=== PATIENT | male | born 1955 | race Caucasian/White ===

== ENCOUNTER 2019-08-07 18:28 | Inpatient (IN) ==
[2019-08-07] MEDS ORDERED: Ipratropium/Albuterol Neb 3 ML IH ONE (18:45)
[2019-08-07] MEDS ORDERED: Furosemide 40 MG/4 ML VIAL IVP STA (18:47)
[2019-08-07 19:36] LABS: Basophils % 0.4 %; Eosinophils # 0.1 K/mcL (0.0-0.6); Eosinophils % 0.9 %; Hematocrit 25.3 % (37.5-50.1); Hemoglobin 7.8 g/dL (12.9-16.9); Immature Granulocytes % 0.4 % (0-4); Lymphocytes # 0.5 K/mcL (0.6-4.6); Lymphocytes % 9.4 %; Mean Corpuscular HGB Conc 30.8 g/dL (31.6-35.5); Mean Corpuscular Hemoglobin 28.9 pg (28.0-33.3); Mean Corpuscular Volume 93.7 fL (83.0-100.0); Mean Platelet Volume 11.1 fL (9.4-12.4); Monocytes # 0.6 K/mcL (0.0-1.3); Monocytes % 10.6 %; Neutrophils # 4.4 K/mcL (1.6-8.9); Platelet Count 112 K/mcL (140-400); Red Cell Distribution Width 17.1 % (11.5-14.5); Segmented Neutrophils % 78.3 %; White Blood Count 5.6 K/mcL (4.3-11.1)
[2019-08-07 19:41] LABS: INR 4.1
[2019-08-07 19:44] LABS: Prothrombin Time 46.6 Seconds (9.4-12.1)
[2019-08-07 19:58] LABS: Calcium 8.6 mg/dL (8.6-10.3); Potassium 5.4 mEq/L (3.5-5.1)
[2019-08-07] MEDS ORDERED: Acetaminophen 325 MG TABLET PO PRN (21:36)
[2019-08-07] MEDS ORDERED: Naloxone 0.4 MG/ML INJ IVP PRN (21:36)
[2019-08-07] MEDS ORDERED: methylPREDNISolone 125 MG/2 ML VIAL IVP ONE (21:43)
[2019-08-07] MEDS ORDERED: Furosemide 20 MG/2 ML VIAL IVP ONE (21:44)
[2019-08-07 22:45] LABS: Bilirubin,Urine Negative (Negative); Blood,Urine Negative (Negative); Clarity,Urine Clear (Clear); Color,Urine Yellow (Yellow); Glucose,Urine (UA) Normal (Normal); Ketones,Urine Negative (Negative); Leukocyte Esterase,Urine Negative (Negative); Nitrite,Urine Negative (Negative); Protein,Urine Negative (Neg-Trace); Specific Gravity,Urine 1.011 (1.010-1.025); Urobilinogen,Urine Normal (Normal)
[2019-08-07] MEDS ORDERED: Pantoprazole 40 MG VIAL IVP ONE (22:46)
[2019-08-07 22:55] LABS: Sodium, Urine 102.1 mEq/L
[2019-08-07] MEDS ORDERED: 0.9 % Sodium Chloride 250 ML ONE (23:38)
[2019-08-08] MEDS: Ipratropium/Albuterol Neb 3 ML IH SCH ×4 (03:57→22:15)
[2019-08-08 05:15] LABS: Hematocrit 26.9 % (37.5-50.1); Hemoglobin 8.4 g/dL (12.9-16.9); Mean Corpuscular HGB Conc 31.2 g/dL (31.6-35.5); Mean Corpuscular Hemoglobin 29.1 pg (28.0-33.3); Mean Corpuscular Volume 93.1 fL (83.0-100.0); Mean Platelet Volume 11.8 fL (9.4-12.4); Platelet Count 118 K/mcL (140-400); Red Blood Count 2.89 M/mcL (4.19-5.50); White Blood Count 4.9 K/mcL (4.3-11.1)
[2019-08-08 05:25] LABS: INR 2.1; Prothrombin Time 23.4 Seconds (9.4-12.1)
[2019-08-08 05:33] LABS: % Iron Saturation 8 % (20-55); Iron 32 mcg/dL (65-175); Transferrin 300 mg/dL (203-362)
[2019-08-08 05:34] LABS: Calcium 8.6 mg/dL (8.6-10.3); Potassium 5.4 mEq/L (3.5-5.1)
[2019-08-08 06:00] LABS: Folate 22.1 ng/mL (3.0-16.0)
[2019-08-08] MEDS ORDERED: Pantoprazole 40 MG VIAL IVP SCH (06:30)
[2019-08-08] MEDS ORDERED: Furosemide 20 MG/2 ML VIAL IVP SCH (08:00)
[2019-08-08] MEDS: levETIRAcetam 250 MG TABLET PO SCH ×2 (09:05→22:55)
[2019-08-08 10:20] LABS: Adenovirus Not Detected (Not Detect); Bordetella Pertussis Not Detected (Not Detect); Chlamydophila pneumoniae Not Detected (Not Detect); Coronavirus 229E Not Detected (Not Detect); Coronavirus HKU1 Not Detected (Not Detect); Coronavirus NL63 Not Detected (Not Detect); Coronavirus OC43 Not Detected (Not Detect); Human Metapneumovirus Not Detected (Not Detect); Human Rhinovirus/Enterovirus DETECTED (Not Detect); Influenza A Subtype 2009 H1 Not Detected (Not Detect); Influenza B Not Detected (Not Detect); Mycoplasma pneumoniae Not Detected (Not Detect); Parainfluenza Virus 1 Not Detected (Not Detect); Parainfluenza Virus 2 Not Detected (Not Detect); Parainfluenza Virus 3 Not Detected (Not Detect); Parainfluenza Virus 4 Not Detected (Not Detect); Respiratory Syncytial Virus Not Detected (Not Detect)
[2019-08-08 10:22] LABS: Hematocrit 27.7 % (37.5-50.1); Hemoglobin 8.7 g/dL (12.9-16.9)
[2019-08-08] MEDS ORDERED: SODIUM CHLORIDE/NAHCO3/KCL/PEG 4,000 ML SOLN.RECON PO ONE (12:00)
[2019-08-08] MEDS: cefTRIAXone 1,000 MG in Water for inj. (sterile) 10 ML IVPB SCH (16:50)
[2019-08-08] MEDS: Pantoprazole 40 MG VIAL IVP SCH (16:51)
[2019-08-08 17:32] LABS: Hematocrit 27.2 % (37.5-50.1); Hemoglobin 8.4 g/dL (12.9-16.9)
[2019-08-08] MEDS: Doxycycline 100 MG CAPSULE PO SCH (22:55)
[2019-08-09 02:36] LABS: INR 1.5; Prothrombin Time 16.7 Seconds (9.4-12.1)
[2019-08-09 02:37] LABS: Hematocrit 25.4 % (37.5-50.1); Hemoglobin 8.1 g/dL (12.9-16.9); Immature Granulocytes % 0.3 % (0-4); Lymphocytes # 0.5 K/mcL (0.6-4.6); Lymphocytes % 6.7 %; Mean Corpuscular HGB Conc 31.9 g/dL (31.6-35.5); Mean Platelet Volume 11.2 fL (9.4-12.4); Monocytes # 0.5 K/mcL (0.0-1.3); Monocytes % 6.6 %; Neutrophils # 6.7 K/mcL (1.6-8.9); Platelet Count 122 K/mcL (140-400); Red Blood Count 2.79 M/mcL (4.19-5.50); Red Cell Distribution Width 16.4 % (11.5-14.5); Segmented Neutrophils % 86.4 %
[2019-08-09 02:42] LABS: White Blood Count 7.8 K/mcL (4.3-11.1)
[2019-08-09 02:49] LABS: Calcium 8.4 mg/dL (8.6-10.3); Magnesium 2.1 mg/dL (1.6-2.6); Potassium 4.6 mEq/L (3.5-5.1)
[2019-08-09] MEDS: Ipratropium/Albuterol Neb 3 ML IH SCH ×4 (03:48→21:55)
[2019-08-09] MEDS ORDERED: 0.9 % Sodium Chloride 250 ML IVC ONE (05:28)
[2019-08-09] MEDS: Pantoprazole 40 MG VIAL IVP SCH ×2 (05:41→17:22)
[2019-08-09] MEDS ORDERED: Propofol 500 MG/50 ML INFUS..BTL ONE (08:01)
[2019-08-09] MEDS: Doxycycline 100 MG CAPSULE PO SCH ×2 (08:17→22:18)
[2019-08-09] MEDS: levETIRAcetam 250 MG TABLET PO SCH ×2 (08:17→22:18)
[2019-08-09] MEDS ORDERED: Lidocaine -MPF 2% 2 ML VIAL ONE (10:37)
[2019-08-09] MEDS ORDERED: *HR* PHENYLEPHRINE 1,000 MCG/10 ML SYRINGE IVP ONE (11:26)
[2019-08-09] MEDS ORDERED: EPHEDrine 50 MG/ML VIAL ONE (11:35)
[2019-08-09 12:58] LABS: Hematocrit 26.2 % (37.5-50.1); Hemoglobin 8.2 g/dL (12.9-16.9)
[2019-08-09] MEDS: cefTRIAXone 1,000 MG in Water for inj. (sterile) 10 ML IVPB SCH (13:23)
[2019-08-10] MEDS: Ipratropium/Albuterol Neb 3 ML IH SCH ×4 (03:51→21:52)
[2019-08-10 05:25] LABS: Basophils % 0.1 %; Eosinophils % 0.3 %; Hematocrit 26.3 % (37.5-50.1); Hemoglobin 8.3 g/dL (12.9-16.9); Immature Granulocytes % 0.3 % (0-4); Lymphocytes # 1.1 K/mcL (0.6-4.6); Lymphocytes % 14.3 %; Mean Corpuscular HGB Conc 31.6 g/dL (31.6-35.5); Mean Corpuscular Hemoglobin 29.4 pg (28.0-33.3); Mean Corpuscular Volume 93.3 fL (83.0-100.0); Monocytes # 0.5 K/mcL (0.0-1.3); Neutrophils # 6.3 K/mcL (1.6-8.9); Platelet Count 100 K/mcL (140-400); Red Blood Count 2.82 M/mcL (4.19-5.50); Red Cell Distribution Width 16.5 % (11.5-14.5)
[2019-08-10 05:31] LABS: INR 1.3; Prothrombin Time 14.2 Seconds (9.4-12.1)
[2019-08-10 05:44] LABS: Calcium 8.2 mg/dL (8.6-10.3); Magnesium 2.3 mg/dL (1.6-2.6); Potassium 4.7 mEq/L (3.5-5.1)
[2019-08-10] MEDS: Pantoprazole 40 MG VIAL IVP SCH (06:06)
[2019-08-10] MEDS ORDERED: *HR* Heparin 5,000 UNIT/ML VIAL IVP PRN ×2 (08:24)
[2019-08-10] MEDS: Doxycycline 100 MG CAPSULE PO SCH ×2 (09:09→22:15)
[2019-08-10] MEDS: levETIRAcetam 250 MG TABLET PO SCH ×2 (09:09→22:15)
[2019-08-10] MEDS: Heparin 25,000 UNIT/250 ML D5W 25,000 UNIT/250 ML IV.SOLN IVC SCH (09:10)
[2019-08-10] MEDS: cefTRIAXone 1,000 MG in Water for inj. (sterile) 10 ML IVPB SCH (13:15)
[2019-08-10] MEDS: carvediloL 25 MG TABLET PO SCH (16:59)
[2019-08-11 01:09] LABS: Basophils % 0.3 %; Eosinophils # 0.1 K/mcL (0.0-0.6); Hematocrit 30.4 % (37.5-50.1); Hemoglobin 9.1 g/dL (12.9-16.9); Immature Granulocytes % 0.1 % (0-4); Lymphocytes # 1.3 K/mcL (0.6-4.6); Lymphocytes % 16.7 %; Mean Corpuscular HGB Conc 29.9 g/dL (31.6-35.5); Mean Corpuscular Hemoglobin 29.2 pg (28.0-33.3); Mean Corpuscular Volume 97.4 fL (83.0-100.0); Mean Platelet Volume 11.9 fL (9.4-12.4); Monocytes # 0.4 K/mcL (0.0-1.3); Monocytes % 4.8 %; Neutrophils # 6.2 K/mcL (1.6-8.9); Platelet Count 114 K/mcL (140-400); Red Blood Count 3.12 M/mcL (4.19-5.50); Red Cell Distribution Width 16.6 % (11.5-14.5); Segmented Neutrophils % 77.1 %
[2019-08-11 01:13] LABS: INR 1.4; Prothrombin Time 16.2 Seconds (9.4-12.1)
[2019-08-11 01:25] LABS: Calcium 8.9 mg/dL (8.6-10.3); Magnesium 2.1 mg/dL (1.6-2.6)
[2019-08-11] MEDS: Heparin 25,000 UNIT/250 ML D5W 25,000 UNIT/250 ML IV.SOLN IVC SCH (02:15)
[2019-08-11] MEDS: Ipratropium/Albuterol Neb 3 ML IH SCH (04:02)
[2019-08-11] MEDS ORDERED: Ipratropium Neb 0.5 MG NEBULIZER IH PRN (07:40)
[2019-08-11] MEDS: levETIRAcetam 250 MG TABLET PO SCH ×2 (09:51→22:11)
[2019-08-11] MEDS: carvediloL 25 MG TABLET PO SCH ×2 (09:51→16:35)
[2019-08-11] MEDS: Aspirin Enteric Coated 81 MG Tablet PO SCH (09:51)
[2019-08-11] MEDS: Doxycycline 100 MG CAPSULE PO SCH ×2 (09:52→22:10)
[2019-08-11] MEDS: MethylPREDNISolone 40 MG/ML VIAL IVP SCH ×2 (09:52→18:24)
[2019-08-11] MEDS: Levalbuterol Neb 0.63 MG/3 ML IH SCH ×3 (10:18→21:58)
[2019-08-11] MEDS: cefTRIAXone 1,000 MG in Water for inj. (sterile) 10 ML IVPB SCH (16:27)
[2019-08-11] MEDS ORDERED: *HR* Metoprolol 5 MG/5 ML VIAL IVP PRN (16:30)
[2019-08-11] MEDS ORDERED: Warfarin perPT PO PRN (18:00)
[2019-08-12 02:06] LABS: Hematocrit 30.6 % (37.5-50.1); Hemoglobin 9.4 g/dL (12.9-16.9); INR 1.3; Immature Granulocytes % 0.6 % (0-4); Lymphocytes # 0.6 K/mcL (0.6-4.6); Mean Corpuscular HGB Conc 30.7 g/dL (31.6-35.5); Mean Corpuscular Hemoglobin 29.2 pg (28.0-33.3); Mean Platelet Volume 12.4 fL (9.4-12.4); Monocytes # 0.1 K/mcL (0.0-1.3); Monocytes % 1.5 %; Neutrophils # 6.2 K/mcL (1.6-8.9); Platelet Count 130 K/mcL (140-400); Prothrombin Time 14.9 Seconds (9.4-12.1); Red Blood Count 3.22 M/mcL (4.19-5.50); Segmented Neutrophils % 89.9 %; White Blood Count 6.9 K/mcL (4.3-11.1)
[2019-08-12 02:22] LABS: Calcium 9.3 mg/dL (8.6-10.3); Magnesium 2.3 mg/dL (1.6-2.6); Potassium 4.7 mEq/L (3.5-5.1)
[2019-08-12] MEDS: Levalbuterol Neb 0.63 MG/3 ML IH SCH ×4 (03:37→22:19)
[2019-08-12] MEDS: MethylPREDNISolone 40 MG/ML VIAL IVP SCH ×2 (05:21→18:47)
[2019-08-12] MEDS: levETIRAcetam 250 MG TABLET PO SCH ×2 (12:04→19:45)
[2019-08-12] MEDS: Aspirin Enteric Coated 81 MG Tablet PO SCH (12:04)
[2019-08-12] MEDS: carvediloL 25 MG TABLET PO SCH ×2 (12:04→18:47)
[2019-08-12] MEDS: Doxycycline 100 MG CAPSULE PO SCH ×2 (12:04→19:44)
[2019-08-12] MEDS ORDERED: *HR* Heparin 5,000 UNIT/ML VIAL IVP PRN ×2 (13:08)
[2019-08-12] MEDS ORDERED: *HR* Heparin 5,000 UNIT/ML VIAL IVP ONE (13:08)
[2019-08-12] MEDS: Heparin 25,000 UNIT/250 ML D5W 25,000 UNIT/250 ML IV.SOLN IVC SCH (14:41)
[2019-08-12] MEDS: Gabapentin 100 MG CAPSULE PO SCH (19:45)
[2019-08-12] MEDS: Cefdinir 300 MG CAPSULE PO SCH (19:45)
[2019-08-13] MEDS: Levalbuterol Neb 0.63 MG/3 ML IH SCH ×4 (03:54→21:40)
[2019-08-13 05:08] LABS: Hemoglobin 8.5 g/dL (12.9-16.9); Immature Granulocytes % 0.6 % (0-4); Lymphocytes # 0.6 K/mcL (0.6-4.6); Lymphocytes % 5.5 %; Mean Corpuscular HGB Conc 31.5 g/dL (31.6-35.5); Mean Corpuscular Volume 92.2 fL (83.0-100.0); Mean Platelet Volume 11.6 fL (9.4-12.4); Monocytes # 0.3 K/mcL (0.0-1.3); Monocytes % 2.7 %; Neutrophils # 9.6 K/mcL (1.6-8.9); Platelet Count 131 K/mcL (140-400); Red Blood Count 2.93 M/mcL (4.19-5.50); Red Cell Distribution Width 16.1 % (11.5-14.5); Segmented Neutrophils % 91.2 %; White Blood Count 10.5 K/mcL (4.3-11.1)
[2019-08-13] MEDS: MethylPREDNISolone 40 MG/ML VIAL IVP SCH (05:10)
[2019-08-13 05:11] LABS: INR 1.4
[2019-08-13 05:28] LABS: Potassium 4.9 mEq/L (3.5-5.1)
[2019-08-13] MEDS: Doxycycline 100 MG CAPSULE PO SCH ×2 (08:12→22:03)
[2019-08-13] MEDS: Cefdinir 300 MG CAPSULE PO SCH ×2 (08:12→22:03)
[2019-08-13] MEDS: levETIRAcetam 250 MG TABLET PO SCH ×2 (08:14→22:02)
[2019-08-13] MEDS: carvediloL 25 MG TABLET PO SCH ×2 (08:15→17:04)
[2019-08-13] MEDS: Gabapentin 100 MG CAPSULE PO SCH ×3 (08:16→22:03)
[2019-08-13] MEDS: Aspirin Enteric Coated 81 MG Tablet PO SCH (08:17)
[2019-08-13] MEDS: Heparin 25,000 UNIT/250 ML D5W 25,000 UNIT/250 ML IV.SOLN IVC SCH (10:44)
[2019-08-13] MEDS ORDERED: *HR* Warfarin 3 MG TABLET PO ONE (18:00)
[2019-08-13] MEDS ORDERED: Warfarin perPT PO PRN (18:00)
[2019-08-14] MEDS: Levalbuterol Neb 0.63 MG/3 ML IH SCH ×4 (03:43→22:24)
[2019-08-14 04:45] LABS: Basophils % 0.1 %; Hematocrit 26.1 % (37.5-50.1); Hemoglobin 7.9 g/dL (12.9-16.9); Immature Granulocytes % 0.6 % (0-4); Lymphocytes % 7.2 %; Mean Corpuscular HGB Conc 30.3 g/dL (31.6-35.5); Mean Corpuscular Hemoglobin 29.2 pg (28.0-33.3); Mean Corpuscular Volume 96.3 fL (83.0-100.0); Mean Platelet Volume 12.1 fL (9.4-12.4); Monocytes # 0.8 K/mcL (0.0-1.3); Neutrophils # 11.6 K/mcL (1.6-8.9); Platelet Count 134 K/mcL (140-400); Red Blood Count 2.71 M/mcL (4.19-5.50); Red Cell Distribution Width 16.7 % (11.5-14.5); Segmented Neutrophils % 86.1 %; White Blood Count 13.4 K/mcL (4.3-11.1)
[2019-08-14 04:48] LABS: INR 1.4; Prothrombin Time 16.3 Seconds (9.4-12.1)
[2019-08-14 05:01] LABS: % Iron Saturation 19 % (20-55); Iron 64 mcg/dL (65-175); Transferrin 245 mg/dL (203-362)
[2019-08-14 05:05] LABS: Calcium 8.7 mg/dL (8.6-10.3); Potassium 4.9 mEq/L (3.5-5.1)
[2019-08-14] MEDS: Heparin 25,000 UNIT/250 ML D5W 25,000 UNIT/250 ML IV.SOLN IVC SCH (07:23)
[2019-08-14] MEDS: Doxycycline 100 MG CAPSULE PO SCH ×2 (07:43→20:26)
[2019-08-14] MEDS: Aspirin Enteric Coated 81 MG Tablet PO SCH (07:43)
[2019-08-14] MEDS: levETIRAcetam 250 MG TABLET PO SCH ×2 (07:44→20:27)
[2019-08-14] MEDS: Cefdinir 300 MG CAPSULE PO SCH ×2 (07:44→20:26)
[2019-08-14] MEDS: carvediloL 25 MG TABLET PO SCH ×2 (07:44→16:26)
[2019-08-14] MEDS: Gabapentin 100 MG CAPSULE PO SCH ×3 (07:44→20:35)
[2019-08-14] MEDS ORDERED: predniSONE 20 MG TABLET PO SCH (09:00)
[2019-08-14] MEDS: Iron Sucrose Complex 200 MG in 0.9 % Sodium Chloride 100 ML IVPB SCH (12:02)
[2019-08-14] MEDS ORDERED: 0.9 % Sodium Chloride 250 ML ONE (13:06)
[2019-08-14] MEDS ORDERED: *HR* Warfarin 3 MG TABLET PO ONE (18:00)
[2019-08-15 02:07] LABS: Basophils % 0.1 %; Hematocrit 27.1 % (37.5-50.1); Hemoglobin 8.3 g/dL (12.9-16.9); Immature Granulocytes % 1.6 % (0-4); Lymphocytes # 1.1 K/mcL (0.6-4.6); Lymphocytes % 9.5 %; Mean Corpuscular HGB Conc 30.6 g/dL (31.6-35.5); Mean Corpuscular Hemoglobin 29.2 pg (28.0-33.3); Mean Corpuscular Volume 95.4 fL (83.0-100.0); Mean Platelet Volume 11.5 fL (9.4-12.4); Monocytes # 0.6 K/mcL (0.0-1.3); Monocytes % 5.6 %; Neutrophils # 9.3 K/mcL (1.6-8.9); Platelet Count 115 K/mcL (140-400); Red Blood Count 2.84 M/mcL (4.19-5.50); Red Cell Distribution Width 16.4 % (11.5-14.5); Segmented Neutrophils % 83.2 %; White Blood Count 11.1 K/mcL (4.3-11.1)
[2019-08-15 02:08] LABS: INR 1.5; Prothrombin Time 16.5 Seconds (9.4-12.1)
[2019-08-15 02:23] LABS: Calcium 8.5 mg/dL (8.6-10.3); Potassium 5.1 mEq/L (3.5-5.1)
[2019-08-15] MEDS: Levalbuterol Neb 0.63 MG/3 ML IH SCH ×4 (04:14→22:24)
[2019-08-15] MEDS: levETIRAcetam 250 MG TABLET PO SCH ×2 (09:12→20:28)
[2019-08-15] MEDS: Aspirin Enteric Coated 81 MG Tablet PO SCH (09:12)
[2019-08-15] MEDS: Iron Sucrose Complex 200 MG in 0.9 % Sodium Chloride 100 ML IVPB SCH (09:13)
[2019-08-15] MEDS: carvediloL 25 MG TABLET PO SCH ×2 (09:13→17:19)
[2019-08-15] MEDS: Gabapentin 100 MG CAPSULE PO SCH ×3 (09:13→20:28)
[2019-08-15] MEDS: Heparin 25,000 UNIT/250 ML D5W 25,000 UNIT/250 ML IV.SOLN IVC SCH (10:30)
[2019-08-15] MEDS ORDERED: *HR* Warfarin 4 MG TABLET PO ONE (18:00)
[2019-08-15 22:19] LABS: INR 1.5; Prothrombin Time 16.8 Seconds (9.4-12.1)
[2019-08-16] MEDS: Levalbuterol Neb 0.63 MG/3 ML IH SCH ×2 (04:01→10:18)
[2019-08-16 05:21] LABS: Hematocrit 28.9 % (37.5-50.1); Hemoglobin 9.1 g/dL (12.9-16.9); Mean Corpuscular HGB Conc 31.5 g/dL (31.6-35.5); Mean Platelet Volume 11.9 fL (9.4-12.4); Platelet Count 126 K/mcL (140-400); Red Blood Count 3.14 M/mcL (4.19-5.50); Red Cell Distribution Width 16.3 % (11.5-14.5); White Blood Count 10.2 K/mcL (4.3-11.1)
[2019-08-16 05:45] LABS: Calcium 8.9 mg/dL (8.6-10.3); Potassium 4.8 mEq/L (3.5-5.1)
[2019-08-16 07:32] VITALS: BP 157/79
[2019-08-16 08:03] LABS: INR 1.5
[2019-08-16] MEDS: Iron Sucrose Complex 200 MG in 0.9 % Sodium Chloride 100 ML IVPB SCH (09:19)
[2019-08-16] MEDS: Aspirin Enteric Coated 81 MG Tablet PO SCH (09:23)
[2019-08-16] MEDS: levETIRAcetam 250 MG TABLET PO SCH (09:23)
[2019-08-16] MEDS: carvediloL 25 MG TABLET PO SCH (09:24)
[2019-08-16] MEDS: Gabapentin 100 MG CAPSULE PO SCH (09:24)
[2019-08-16] MEDS ORDERED: *HR* Warfarin 4 MG TABLET PO ONE (18:00)
== END 2019-08-16 14:05 | disposition home or self-care (01) | DRG 377 ==
LOC: 2NENU 18:28 → EMEROOARM 18:28 → SUATTDRO 20:56 → 2NENU 22:04 → SUATTDRO 08-08 17:50
PROVIDERS: ADMIT Internal Medicine; ATTEND Internal Medicine